=== PATIENT | male | born 1940 | race Caucasian/White ===

== ENCOUNTER 2017-06-22 16:53 | Observation (INO) ==
--- NOTE | 2017-06-22 18:19 | Consult Report ---
*Admission Date: 06/22/17 *Chief complaint: Left ischemic hallux, cellulitis *History of present illness: Mr. Angulo is a 76 y/o DM male who was admitted per Hola Chadwick for Dr. Turner. The patient was seen in clinic today by Dr. Turner for evaluation of left lower extremity circulation. The patient was recently at [facility] seeing Dr. Gutierrez. According to the patient, his daughter and office notes from 06/22/17, patient has known PAD and s/p R AKA. The patient has been going to [facility]. He had a runoff and RLE was completely occluded and resulted in a R AKA 06/01/17 per his report. The patient reports that his LLE was not much better as far as PAD according to Dr. Gutierrez. Patient reports the AKA resulted from lack of blood flow below the knee and from a gangrenous ulcer to tip of toe with infection, which spread to other toes. His daughter reports a small necrotic area to the L great toe started about 3 weeks ago, around same time as RLE AKA. The patient denies N/V, F/C, SOB/CP. He reports some pain if the left great toe is touched. He denies purulence. Patient is wheelchair bound and does not ambulate. He was admitted today for ischemic left toe and PAD. Dr. Turner plans to start antibiotics and anticoagulation tonight in preparation for runoff. He plans to proceed with LLE runoff with R radial access. If PCI is indicated, will use a left antegrade approach to intervene. Will schedule LLE runoff for 7:30 am tomorrow. Review of Systems - Review of Systems Review of systems:: pertinent systems reviewed and negative unless documented below - Constitutional Reports fatigue, Denies chills - *Cardiovascular Reports foot swelling, Denies chest pain, Denies lightheadedness - *Respiratory Denies cough, Denies shortness of breath - *Gastrointestinal Denies abdominal pain - *Musculoskeletal Reports abnormal walking (wheelchair), Reports deformity (Right AKA), Reports limited joint movement - Integumentary/Breasts Reports hair loss (LLE), Reports change in skin color - *Neurologic Reports tingling/numbness/burning sensations, Denies confusion - Psychiatric Denies confusion [facility] History I have reviewed the patient's past medical history: Yes Medical History: Reports:: Anxiety, Congestive Heart Failure, Coronary Artery Disease, Diabetes Mellitus Type 2, Hyperlipidemia, Peripheral Artery Disease, Renal Disease, Ulcer Other Surgeries: Yes: Other Amputation: Yes (R leg 06/01/17) - *Social History Smoking Status: Current some day smoker Tobacco Type: cigars Alcohol Intake: never Housing: halfway - Psychiatric History Expresses thoughts of harming self/others: None Pschychiatric History:: Reports:: Anxiety *Family Hx:: Coronary Artery Disease, Diabetes, Heart Attack Meds Home Medications Medication Instructions Recorded Confirmed Type acetaminophen 325 mg capsule 650 mg PO Q4H PRN 06/22/17 History albuterol sulfate 2.5 mg/3 mL 2.5 mg INHALATION Q4H PRN 06/22/17 History (0.083 %) solution for nebulization albuterol sulfate concentrate 5 2.5 mg INHALATION Q6H PRN ml 06/22/17 History mg/mL(0.5 %) solution for nebulization aspirin 81 mg tablet,delayed 81 mg PO DAILY tab 06/22/17 History release atorvastatin 40 mg tablet 40 mg PO HS tab 06/22/17 History balsam fahad-castor oil 87 mg-788 g TOPICAL Q12H g 06/22/17 History mg/gram topical ointment bumetanide 2 mg tablet 2 mg PO BID tab 06/22/17 History bumetanide 2 mg tablet 2 mg PO BID tab 06/22/17 History calcium acetate 667 mg capsule 667 mg PO TID cap 06/22/17 History cholecalciferol (vitamin D3) 1,000 1,000 unit PO DAILY cap 06/22/17 History unit capsule epoetin travis 10,000 unit/mL 10,000 unit SUB-Q Q3W ml 06/22/17 History injection solution escitalopram 10 mg tablet 10 mg PO DAILY tab 06/22/17 History isosorbide mononitrate ER 60 mg 60 mg PO QAM 06/22/17 History tablet,extended release 24 hr lansoprazole 30 mg capsule,delayed 30 mg PO DAILY cap 06/22/17 History release oxycodone-acetaminophen 5 mg-325 2 tab PO Q4-6H PRN 06/22/17 History mg tablet polyethylene glycol 3350 17 17 g PO Q10M 06/22/17 History gram/dose oral powder sennosides 8.6 mg tablet 8.6 mg PO BID PRN 06/22/17 History Allergies Allergy/AdvReac Type Severity Reaction Status Date / Time No Known Allergies Allergy Verified 06/22/17 15:02 Exam - *Routine HEENT Exam Head: Present: normocephalic - *Routine Neck Exam Present: supple, trachea midline - *Routine Respiratory Exam Absent: respiratory distress - *Routine Cardiovascular Exam Absent: JVD - *Routine Abdominal Exam Absent: wound - *Routine Rectal Exam Patient deferred: visual exam - *Routine Exam Patient deferred: penile exam - *Routine Extremities Exam Present: cyanosis, tenderness, amputation (right AKA). Absent: pulses intact, normal capillary refill - *Routine Skin Exam Present: erythema (left 1-2nd toes), wounds (left hallux) - *Routine Neurological Exam Present: alert, oriented X3 - Detailed Lower Extremity Exam Foot/Toes: Left erythema, Left swelling, Left tenderness, Left wound, Right amputation (R AKA) Comments: Right AKA. Left foot 2+ pitting edema noted. Non palpable pedal pulses. Left distal foot warm to touch. Edema and erythema noted to the first and second digits. There is an ulcer noted to the tip of the left hallux. The ulcer has intact eschar with periwound fibrotic tissue. The ulcer does not probe deep. The necrotic ulcer has no active purulent drainage noted. It measures ~2 x 1.1cm. Non palpable lymph nodes. Pain to palpation of the left hallux ulcer. Results - Labs Labs: All other labs normal. Assessment and Plan (1) Ischemic ulcer of toe of left foot Start date: 06/01/17 Start time: 18:31 Current visit: Yes Status: Acute Qualifiers: Non-pressure ulcer stage: with necrosis of muscle Qualified Code(s): L97.523 - Non-pressure chronic ulcer of other part of left foot with necrosis of muscle Category: Medical Code(s): L97.529 - Non-pressure chronic ulcer of other part of left foot with unspecified severity Infected Wound: left hallux ulcer: I discussed with the patient the importance of proper hygiene and maintaining a clean healthy wound bed to avoid the infection spreading. Due to the lack of blood flow and planned procedure gwyn, I did not debride the wound. No wound culture obtained, due to lack of drainage. Mercedez-wound cellulitis noted. Non- palpable popliteal lymph nodes. I discussed with the patient the situation that happened on the right side. Seems like it started as gangrene to 1 toe with infection that spread to 3 of the toes combined with lack of blood flow that ultimately resulted and an above-knee amputation on 06/01/17. I discussed with the patient and his family that he is high risk for amputation on the left side. I explained that the wound will not heal if there is a lack of blood flow. I explained the antibiotics are important to manage the cellulitis and keep the infection from getting worse. Patient verbalized understanding. 1. Ordered Santyl for daily dressing changes 2. Order infection panel: CBC, CMP, ESR, CRP, Ha1c. 3. IV Abx 4. Podiatry plan: monitor for now. I do not plan on surgery at this time. Await results from Dr. Turner tomorrow to determine if hallux amputation is an option versus local wound care with Santyl and antibiotics. 5. Will continue to follow. (2) Wheelchair bound Current visit: No Status: Chronic Category: Medical Code(s): Z99.3 - Dependence on wheelchair (3) Above knee amputation of right lower extremity Current visit: No Status: Chronic Category: Surgical Code(s): Z89.611 - Acquired absence of right leg above knee (4) Tobacco abuse Current visit: No Status: Chronic Category: Medical Code(s): Z72.0 - Tobacco use (5) PAD (peripheral artery disease) Current visit: No Status: Chronic Category: Medical Code(s): I73.9 - Peripheral vascular disease, unspecified (6) Cellulitis of left foot Start date: 06/22/17 Start time: 18:38 Current visit: Yes Status: Acute Category: Medical Code(s): L03.116 - Cellulitis of left lower limb
[2017-06-22 19:03] LABS: Activated Partial Thrombo Time 24.8 seconds (23.6-34.0); Prothrombin Time 10.8 seconds (9.4-11.8)
[2017-06-23 05:23] LABS: Basophils # 0.1 K/mm3 (0-0.2); Basophils % 0.4 % (0.1-2.0); Eosinophils # 0.2 K/mm3 (0.0-0.4); Eosinophils % 1.2 % (0.1-12.0); Hematocrit 31.1 % (42.0-52.0); Hemoglobin 9.8 g/dL (14.1-18.0); Lymphocytes # 0.8 K/mm3 (0.7-4.5); Lymphocytes % 5.7 K/mm3 (10-50); Mean Corpuscular HGB Conc 31.4 g/dL (31.8-35.4); Mean Corpuscular Hemoglobin 28.2 pg (27.0-31.2); Mean Corpuscular Volume 89.8 fl (80-94); Mean Platelet Volume 8.1 fl (7.4-10.4); Monocytes # 0.9 K/mm3 (0.1-1.0); Monocytes % 6.1 % (1.7-9.3); Neutrophils # 12.1 K/mm3 (1.8-7.8); Neutrophils % 86.6 % (37.0-80.0); Platelet Count 475 K/mm3 (142-424); Red Blood Count 3.47 M/mm3 (4.60-6.20); Red Cell Distribution Width 15.7 % (11.5-17.5); White Blood Count 13.9 K/mm3 (4.8-10.8)
[2017-06-23 05:30] LABS: Albumin Level 2.2 gm/dL (3.4-5.0); Albumin/Globulin Ratio 0.5 (1.1-1.8); Anion Gap 15.6 mEq/L (5-15); Bilirubin,Total 0.3 mg/dL (0.2-1.0); Calcium 8.8 mg/dL (8.5-10.1); Chol/HDL Ratio 2.9 (1-3.5); Globulin 4.6 gm/dl (1.3-3.2); Potassium 4.6 mmoL/L (3.5-5.1); Total Protein,Serum 6.8 gm/dL (6.4-8.2)
--- NOTE | 2017-06-23 07:55 | Pharmacy Consult Notes ---
[facility] Pharmacy VTE Monitoring - Patient Demographics Admission date: 06/22/17 Report Date: 06/23/17 Time: 07:55 Allergies/Adverse Reactions: Patient Allergies No Known Allergies Allergy (Verified 06/22/17 15:02) Height: 1.68 m Weight: 73.68 kg Patient Problems: Current Active Problems Cellulitis of left foot (Acute) Ischemic ulcer of toe of left foot (Acute) - VTE Risk Labs: VTE Related Lab Results Hgb 9.8 g/dL (14.1-18.0) L 06/23/17 03:10 Hct 31.1 % (42.0-52.0) L 06/23/17 03:10 Plt Count 475 K/mm3 (142-424) H 06/23/17 03:10 PT 10.8 seconds (9.4-11.8) 06/22/17 18:45 INR 1.00 (0.9-1.1) 06/22/17 18:45 APTT 33.1 seconds (23.6-34.0) 06/23/17 03:15 BUN 62 mg/dL (7-18) H 06/23/17 03:10 Creatinine 4.35 mg/dL (0.70-1.30) H 06/23/17 03:10 Estimated Creat Clear 15 mL/min (0-300) 06/23/17 03:10 Was VTE Risk Assessment Performed: Yes VTE Score: 7 VTE Risk Level: Moderate Risk Clinical Trial Participant: No - Prophylaxis VTE Prophylaxis Ordered?: Yes Types of VTE Prophylaxis: TEDS Knee High
--- NOTE | 2017-06-23 08:13 | Pharmacy Consult Notes ---
[facility] Pharmacy Heparin Dosing - Demographic Data Admission date:: 06/22/17 Date: 06/23/17 Time: 08:10 Allergies/Adverse Reactions: Allergies Allergy/AdvReac Type Severity Reaction Status Date / Time No Known Allergies Allergy Verified 06/22/17 15:02 Height: 1.87 m Weight: 78 kg - Indication Medication therapy:: Heparin Current Indications:: ISCHEMIA OF LEFT TOE/FOOT Patient Problems: Current Active Problems Cellulitis of left foot (Acute) Ischemic ulcer of toe of left foot (Acute) CVA?: No Bleeding problem?: No Kidney disease?: No [place]?: No Additional History:: AMPUTATION OF RIGHT LEG (RECENT) Desired PTT range:: 50-70 seconds - Labs Anticoagulation Lab Results:: 06/23/17 03:10 Hgb 9.8 L Hct 31.1 L Plt Count 475 H - Monitoring Dose Monitor 1 Date: 06/22/17 Time: 19:59 PTT Result:: 24.8 Infusion Rate:: 20 ML/HR (1000 UNITS/HR) WITH [address] PER [address]. ANDERSON, LIKELY INTERVENTION 06/23/17 Dose Monitor 2 Date: 06/23/17 Time: 04:20 PTT Result:: 33.1 Infusion Rate:: REBOLUS OF HEPARIN 5000 UNITS X1, THEN 23 ML/HR (1150 UNITS/HR) - Core Measures Is INR > or = 2 at discharge?: No Most Recent Labs:: Laboratory Results - last 24 hr 06/22/17 18:45: PT 10.8, INR 1.00, APTT 24.8 06/22/17 18:45: ESR 83 H 06/22/17 18:45: Hemoglobin A1c 5.7 06/22/17 18:45: C-Reactive Protein 6.8 H 06/22/17 20:03: POC Glucose 174 06/23/17 03:10: WBC 13.9 H, RBC 3.47 L, Hgb 9.8 L, Hct 31.1 L, MCV 89.8, MCH 28.2, MCHC 31.4 L, RDW 15.7, Plt Count 475 H, MPV 8.1, Neut % (Auto) 86.6 H, Lymph % (Auto) 5.7 L, [place] % (Auto) 6.1, Eos % (Auto) 1.2, Baso % (Auto) 0.4, Neut # (Auto) 12.1 H, Lymph # (Auto) 0.8, [place] # (Auto) 0.9, Eos # (Auto) 0.2, Baso # (Auto) 0.1 06/23/17 03:10: Sodium 138, Potassium 4.6, Chloride 103, Carbon Dioxide 24, Anion Gap 15.6 H, BUN 62 H, Creatinine 4.35 H, Estimated Creat Clear 15, Estimated GFR 13 L*, Est GFR ( Amer) 16 L*, Glucose 108 H, Calcium 8.8, Total Bilirubin 0.3, AST 25, ALT 18, Alkaline Phosphatase 94, Total Protein 6.8 , Albumin 2.2 L, Globulin 4.6 H, Albumin/Globulin Ratio 0.5 L, Triglycerides 47 , Cholesterol 120 L, LDL Cholesterol 70, VLDL Cholesterol 9, HDL Cholesterol 41 , Cholesterol/HDL Ratio 2.9 06/23/17 03:15: APTT 33.1 06/23/17 06:27: POC Glucose 99 Were Heparin and Warfarin started on the same day?: No If not, why?: PATIENT STENTED
--- NOTE | 2017-06-23 08:54 | Progress Note ---
Subjective Date: 06/23/17 Time: 07:40 Principal diagnosis: Left PVD, Ischemic Great Toe Interval history: Mr. Angulo is a 76 y/o DM male who was admitted yesterday 06/22/17. The patient was seen in clinic by Dr. Turner for evaluation of left lower extremity circulation. The patient was recently at [facility] seeing Dr. Gutierrez. He had R AKA 06/01/17. Patient is resting comfortably in bed. He denies N/V, F/C. He reports mild pain and discomfort to left foot. PN: Obj Ex Vital signs: Temp Pulse Resp BP Pulse Ox 99.1 F 87 16 149/65 91 L 06/23/17 07:31 06/23/17 07:31 06/23/17 07:31 06/23/17 07:31 06/23/17 07:31 - Constitutional no acute distress - Detailed Lower Extremity Exam Foot/Toes: Left swelling (great toe), Left wound (ischemic ulcer), Right amputation (AKA) Comments: Right AKA. Left foot 2+ pitting edema noted. Non palpable pedal pulses. Left distal foot warm to touch. Edema and erythema noted to the first and second digits. There is an ulcer noted to the tip of the left hallux. The ulcer has intact eschar with periwound fibrotic tissue. The ulcer does not probe deep. The necrotic ulcer has no active purulent drainage noted. It measures ~2 x 1.1cm. Non palpable lymph nodes. Pain to palpation of the left hallux ulcer. Progress Note: A&P (1) Ischemic ulcer of toe of left foot Start date: 06/01/17 Start time: 08:54 Status: Acute Current Visit: Yes (2) Wheelchair bound Status: Chronic Assessment and plan: Infected ichemic left hallux: The patient was initially scheduled for procedure this morning by Dr. Turner. He should not was still in the room. Only the procedure has been canceled for today due to his high creatinine levels. He is a renal dialysis patient and is scheduled for dialysis today. I discussed with the patient the importance of proper hygiene and maintaining a clean healthy wound bed to avoid the infection spreading. Due to the lack of blood flow, I did not debride the wound. No wound culture obtained, due to lack of drainage. Mercedez-wound cellulitis noted. Non-palpable popliteal lymph nodes. I discussed with the patient the situation that happened on the right side. Seems like it started as gangrene to 1 toe with infection that spread to 3 of the toes combined with lack of blood flow that ultimately resulted and an above- knee amputation on 06/01/17. I discussed with the patient and his family that he is high risk for amputation on the left side. I explained that the wound will not heal if there is a lack of blood flow. I explained the antibiotics are important to manage the cellulitis and keep the infection from getting worse. Patient verbalized understanding. 1. Ordered Santyl for daily dressing changes (applied betadine DSD this am) 2. Continue IV Abx 3. Podiatry plan: monitor for now. I do not plan on surgery at this time. Await results from Dr. Turner to determine if hallux amputation is an option versus local wound care with Santyl and antibiotics. 4. Patient will need to be transferred out for Dialysis 5. Recommend he goes to [facility] to resume care with his previous physicians 6. May follow up with me after re-vascularization 7. Will need daily dressing changes with Santyl (via [facility] or correction) Current Visit: No (3) Above knee amputation of right lower extremity Status: Chronic Current Visit: No (4) Tobacco abuse Status: Chronic Current Visit: No (5) PAD (peripheral artery disease) Status: Chronic Current Visit: No (6) Cellulitis of left foot Status: Acute Current Visit: Yes
--- NOTE | 2017-06-23 09:20 | Consult Report ---
History of Present Illness Consult date: 06/23/17 Requesting physician: Luis White Chief complaint: left leg ulcer Additional Medical History:: 1. Peripheral arterial disease A. Status post right [id number] amputation, 04/2017, secondary to nonhealing ulcer B. Left foot nonhealing ulcer, 05/2017 2. Chronic kidney disease currently on peritoneal dialysis with creatinine 4.3 , GFR 16 3. Hypertension 4. History of chronic cigar use 5. Possible diabetes mellitus, patient unsure. History of present illness: 76-year-old white male admitted for left lower extremity nonhealing ulcer of the foot. Patient known to have chronic kidney disease for which he is on dialysis 3 times a week. He recently had a right [id number] amputation for nonhealing ulcer on the right foot last month. Patient now with decreased warmth of the left foot, increasing pain and nonhealing ulcer. He was admitted for further evaluation. Dr. Ngo of podiatry has been consulted for evaluation as well. Patient denies any chest pain, shortness of breath, chest tightness or pressure. [facility] History Medical History: Reports:: Anxiety, Congestive Heart Failure, Coronary Artery Disease, Diabetes Mellitus Type 2, Hyperlipidemia, MRSA (HAND AND NECK 2014), Peripheral Artery Disease, Renal Disease, Ulcer Denies:: Cancer Laterality Cases: Bilateral: Tonsillectomy Other Surgeries: Yes: Cardiac Catheterization, Colonoscopy, EGD, Other Amputation: Yes (R leg 06/01/17) - *Social History Educational Level: Completed College Smoking Status: Current every day smoker Tobacco Type: cigars # Packs/Day (cigarettes): 1 #Yrs smoked (if former smoker): 60 Alcohol Intake: never Occupational Status: retired, disabled Housing: half-way Household Members: other - Psychiatric History Expresses thoughts of harming self/others: None Suicide Plan Description: No Plan Pschychiatric History:: Reports:: Anxiety *Family Hx:: Coronary Artery Disease, Diabetes, Heart Attack Meds Home Medications Medication Instructions Recorded Confirmed Type Clopidogrel Bisulfate [Plavix] 75 mg PO DAILY 06/22/17 06/22/17 History Ondansetron HCl [Ondansetron 4mg 4 mg PO Q6HP PRN 06/22/17 06/22/17 History Tab] acetaminophen 325 mg capsule 650 mg PO Q4H PRN 06/22/17 06/22/17 History albuterol sulfate 2.5 mg/3 mL 2.5 mg INHALATION Q6HP PRN 06/22/17 06/22/17 History (0.083 %) solution for nebulization aspirin 81 mg tablet,delayed 81 mg PO DAILY tab MDD = 06/22/17 06/22/17 History release atorvastatin 40 mg tablet 40 mg PO HS tab 06/22/17 06/22/17 History balsam fahad-castor oil 87 mg-788 1 g TOPICAL Q12H g 06/22/17 06/22/17 History mg/gram topical ointment bumetanide 2 mg tablet 2 mg PO BID tab 06/22/17 06/22/17 History calcium acetate 667 mg capsule 667 mg PO TID cap 06/22/17 06/22/17 History cholecalciferol (vitamin D3) 1,000 1,000 unit PO DAILY cap 06/22/17 06/22/17 History unit capsule epoetin travis 10,000 unit/mL 10,000 unit SUB-Q Q3W ml 06/22/17 06/22/17 History injection solution escitalopram 10 mg tablet 10 mg PO DAILY tab 06/22/17 06/22/17 History isosorbide mononitrate ER 60 mg 60 mg PO QAM 06/22/17 06/22/17 History tablet,extended release 24 hr lansoprazole 30 mg capsule,delayed 30 mg PO DAILY cap 06/22/17 06/22/17 History release oxycodone-acetaminophen 5 mg-325 2 tab PO Q4HP PRN 06/22/17 06/22/17 History mg tablet polyethylene glycol 3350 17 17 g PO DAILY 06/22/17 06/22/17 History gram/dose oral powder sennosides 8.6 mg tablet 8.6 mg PO BID PRN 06/22/17 06/22/17 History Allergies Allergy/AdvReac Type Severity Reaction Status Date / Time No Known Allergies Allergy Verified 06/22/17 15:02 Review of Systems - *Cardiovascular Denies chest pain - *Respiratory Reports shortness of breath with activity - *Gastrointestinal Denies abdominal pain - *Neurologic Reports abnormal walking (wheelchair), Reports tingling/numbness/burning sensations, Denies confusion Exam Vital signs and Labs for Last 24 Hours: Temp Pulse Resp BP Pulse Ox 99.1 F 87 16 149/65 91 L 06/23/17 07:31 06/23/17 07:31 06/23/17 07:31 06/23/17 07:31 06/23/17 07:31 Laboratory Results - last 24 hr 06/22/17 18:45: PT 10.8, INR 1.00, APTT 24.8 06/22/17 18:45: ESR 83 H 06/22/17 18:45: Hemoglobin A1c 5.7 06/22/17 18:45: C-Reactive Protein 6.8 H 06/22/17 20:03: POC Glucose 174 06/23/17 03:10: WBC 13.9 H, RBC 3.47 L, Hgb 9.8 L, Hct 31.1 L, MCV 89.8, MCH 28.2, MCHC 31.4 L, RDW 15.7, Plt Count 475 H, MPV 8.1, Neut % (Auto) 86.6 H, Lymph % (Auto) 5.7 L, [place] % (Auto) 6.1, Eos % (Auto) 1.2, Baso % (Auto) 0.4, Neut # (Auto) 12.1 H, Lymph # (Auto) 0.8, [place] # (Auto) 0.9, Eos # (Auto) 0.2, Baso # (Auto) 0.1 06/23/17 03:10: Sodium 138, Potassium 4.6, Chloride 103, Carbon Dioxide 24, Anion Gap 15.6 H, BUN 62 H, Creatinine 4.35 H, Estimated Creat Clear 15, Estimated GFR 13 L*, Est GFR ( Amer) 16 L*, Glucose 108 H, Calcium 8.8, Total Bilirubin 0.3, AST 25, ALT 18, Alkaline Phosphatase 94, Total Protein 6.8 , Albumin 2.2 L, Globulin 4.6 H, Albumin/Globulin Ratio 0.5 L, Triglycerides 47 , Cholesterol 120 L, LDL Cholesterol 70, VLDL Cholesterol 9, HDL Cholesterol 41 , Cholesterol/HDL Ratio 2.9 06/23/17 03:15: APTT 33.1 06/23/17 06:27: POC Glucose 99 I & O for Last 24 hours: Intake & Output 06/20/17 06/21/17 06/22/17 06/23/17 11:59 11:59 11:59 11:59 Intake Total 200 / 200 Balance 200 / 200 Weight 162 lb 7 oz - *Routine Neck Exam Present: carotid bruit - *Routine Respiratory Exam Present: CTA bilaterally - *Routine Cardiovascular Exam Present: RRR, murmur - *Routine Extremities Exam Comments: Right [id number] amputation noted. Left leg with bandage around the toes and dorsum of the foot but without palpable pulse. Foot is warm. - *Routine Neurological Exam Present: alert, oriented X3, moving all extremities Assessment and Plan (1) Ischemic ulcer of toe of left foot Start date: 06/01/17 Start time: 08:54 Current visit: Yes Status: Acute Qualifiers: Non-pressure ulcer stage: with necrosis of muscle Qualified Code(s): L97.523 - Non-pressure chronic ulcer of other part of left foot with necrosis of muscle Category: Medical Code(s): L97.529 - Non-pressure chronic ulcer of other part of left foot with unspecified severity (2) Wheelchair bound Current visit: No Status: Chronic Category: Medical Code(s): Z99.3 - Dependence on wheelchair (3) Above knee amputation of right lower extremity Current visit: No Status: Chronic Category: Surgical Code(s): Z89.611 - Acquired absence of right leg above knee (4) Tobacco abuse Current visit: No Status: Chronic Category: Medical Code(s): Z72.0 - Tobacco use (5) PAD (peripheral artery disease) Current visit: No Status: Chronic Category: Medical Code(s): I73.9 - Peripheral vascular disease, unspecified (6) Cellulitis of left foot Start date: 06/22/17 Start time: 18:38 Current visit: Yes Status: Acute Category: Medical Code(s): L03.116 - Cellulitis of left lower limb - Assessment and plan all Dx Assessment and Plan for all problems:: 1. Proceed with lower extremity runoff of the left leg today. Other recommendations to follow. 2. Reschedule the patient's dialysis from today to tomorrow. 3. Will try to obtain recent records for further review.
[2017-06-23 10:53] LABS: Lymphocytes % 9 % (10-50); Monocytes % 9 % (2-9); Neutrophils % 82 % (42-76); Total Cells Counted 100
[2017-06-23 10:54] LABS: RBC Morphology Normal
--- NOTE | 2017-06-23 14:58 | History & Physical Report ---
*Admission Date: 06/22/17 *Chief complaint: foot ulcer *History of present illness: Mr. Angulo is a 76 y/o DM male who was admitted per Hola Chadwick for Dr. Turner. The patient was seen in clinic today by Dr. Turner for evaluation of left lower extremity circulation. The patient was recently at [facility] seeing Dr. Gutierrez. According to the patient, his daughter and office notes from 06/22/17, patient has known PAD and s/p R AKA. The patient has been going to [facility]. He had a runoff and RLE was completely occluded and resulted in a R AKA 06/01/17 per his report. The patient reports that his LLE was not much better as far as PAD according to Dr. Gutierrez. Patient reports the AKA resulted from lack of blood flow below the knee and from a gangrenous ulcer to tip of toe with infection, which spread to other toes. His daughter reports a small necrotic area to the L great toe started about 3 weeks ago, around same time as RLE AKA. The patient denies N/V, F/C, SOB/CP. He reports some pain if the left great toe is touched. He denies purulence. Patient is wheelchair bound and does not ambulate. He was admitted today for ischemic left toe and PAD. Dr. Turner plans to start antibiotics and anticoagulation tonight in preparation for runoff. He plans to proceed with LLE runoff with R radial access. If PCI is indicated, will use a left antegrade approach to intervene. Will schedule LLE runoff for 7:30 am tomorrow. [facility] History I have reviewed the patient's past medical history: Yes Medical History: Reports:: Anxiety, Congestive Heart Failure, Coronary Artery Disease, Diabetes Mellitus Type 2, Hyperlipidemia, MRSA (HAND AND NECK 2015), Peripheral Artery Disease, Renal Disease, Ulcer Denies:: Cancer Laterality Cases: Bilateral: Tonsillectomy Other Surgeries: Yes: Cardiac Catheterization, Colonoscopy, EGD, Other Amputation: Yes (R leg 06/01/17) - *Social History Educational Level: Completed College Smoking Status: Current every day smoker Tobacco Type: cigars # Packs/Day (cigarettes): 1 #Yrs smoked (if former smoker): 60 Alcohol Intake: never Occupational Status: retired, disabled Housing: skilled nursing Household Members: other - Psychiatric History Expresses thoughts of harming self/others: None Suicide Plan Description: No Plan Pschychiatric History:: Reports:: Anxiety *Family Hx:: Coronary Artery Disease, Diabetes, Heart Attack Review of Systems - Review of Systems Review of systems:: pertinent systems reviewed and negative unless documented below - Constitutional Denies fever(s) - Eyes Denies change in vision - ENT Denies sore throat - *Cardiovascular Denies chest pain at rest - *Respiratory Denies cough - *Gastrointestinal Denies abdominal pain - *Genitourinary Denies blood in urine - *Musculoskeletal Reports joint pain, Reports joint swelling - Integumentary/Breasts Denies rash - *Neurologic Reports abnormal walking (wheelchair), Reports tingling/numbness/burning sensations, Denies confusion Meds Home Medications Medication Instructions Recorded Confirmed Type Clopidogrel Bisulfate [Plavix] 75 mg PO DAILY 06/22/17 06/22/17 History Ondansetron HCl [Ondansetron 4mg 4 mg PO Q6HP PRN 06/22/17 06/22/17 History Tab] acetaminophen 325 mg capsule 650 mg PO Q4H PRN 06/22/17 06/22/17 History albuterol sulfate 2.5 mg/3 mL 2.5 mg INHALATION Q6HP PRN 06/22/17 06/22/17 History (0.083 %) solution for nebulization aspirin 81 mg tablet,delayed 81 mg PO DAILY tab MDD = 06/22/17 06/22/17 History release atorvastatin 40 mg tablet 40 mg PO HS tab 06/22/17 06/22/17 History balsam fahad-castor oil 87 mg-788 1 g TOPICAL Q12H g 06/22/17 06/22/17 History mg/gram topical ointment bumetanide 2 mg tablet 2 mg PO BID tab 06/22/17 06/22/17 History calcium acetate 667 mg capsule 667 mg PO TID cap 06/22/17 06/22/17 History cholecalciferol (vitamin D3) 1,000 1,000 unit PO DAILY cap 06/22/17 06/22/17 History unit capsule epoetin travis 10,000 unit/mL 10,000 unit SUB-Q Q3W ml 06/22/17 06/22/17 History injection solution escitalopram 10 mg tablet 10 mg PO DAILY tab 06/22/17 06/22/17 History isosorbide mononitrate ER 60 mg 60 mg PO QAM 06/22/17 06/22/17 History tablet,extended release 24 hr lansoprazole 30 mg capsule,delayed 30 mg PO DAILY cap 06/22/17 06/22/17 History release oxycodone-acetaminophen 5 mg-325 2 tab PO Q4HP PRN 06/22/17 06/22/17 History mg tablet polyethylene glycol 3350 17 17 g PO DAILY 06/22/17 06/22/17 History gram/dose oral powder sennosides 8.6 mg tablet 8.6 mg PO BID PRN 06/22/17 06/22/17 History Allergies Allergy/AdvReac Type Severity Reaction Status Date / Time No Known Allergies Allergy Verified 06/22/17 15:02 Exam Vital signs and Labs for Last 24 Hours: Temp Pulse Resp BP Pulse Ox 99.1 F 80 16 143/82 95 06/23/17 07:31 06/23/17 14:36 06/23/17 14:36 06/23/17 14:36 06/23/17 14:36 Laboratory Results - last 24 hr 06/22/17 18:45: PT 10.8, INR 1.00, APTT 24.8 06/22/17 18:45: ESR 83 H 06/22/17 18:45: Hemoglobin A1c 5.7 06/22/17 18:45: C-Reactive Protein 6.8 H 06/22/17 20:03: POC Glucose 174 06/23/17 03:10: WBC 13.9 H, RBC 3.47 L, Hgb 9.8 L, Hct 31.1 L, MCV 89.8, MCH 28.2, MCHC 31.4 L, RDW 15.7, Plt Count 475 H, MPV 8.1, Neut % (Auto) 86.6 H, Lymph % (Auto) 5.7 L, [place] % (Auto) 6.1, Eos % (Auto) 1.2, Baso % (Auto) 0.4, Neut # (Auto) 12.1 H, Lymph # (Auto) 0.8, [place] # (Auto) 0.9, Eos # (Auto) 0.2, Baso # (Auto) 0.1, Total Counted 100, Neutrophils % (Manual) 82 H, Lymphocytes % (Manual) 9 L, Monocytes % (Manual) 9, Platelet Estimate Slight increase, RBC Morphology Normal 06/23/17 03:10: Sodium 138, Potassium 4.6, Chloride 103, Carbon Dioxide 24, Anion Gap 15.6 H, BUN 62 H, Creatinine 4.35 H, Estimated Creat Clear 15, Estimated GFR 13 L*, Est GFR ( Amer) 16 L*, Glucose 108 H, Calcium 8.8, Total Bilirubin 0.3, AST 25, ALT 18, Alkaline Phosphatase 94, Total Protein 6.8 , Albumin 2.2 L, Globulin 4.6 H, Albumin/Globulin Ratio 0.5 L, Triglycerides 47 , Cholesterol 120 L, LDL Cholesterol 70, VLDL Cholesterol 9, HDL Cholesterol 41 , Cholesterol/HDL Ratio 2.9 06/23/17 03:15: APTT 33.1 06/23/17 06:27: POC Glucose 99 06/23/17 08:41: APTT 42.3 H D 06/23/17 13:13: Activated Clotting Time 219 H* I & O for Last 24 hours: Intake & Output 06/21/17 06/22/17 06/23/17 06/24/17 11:59 11:59 11:59 11:59 Intake Total 200 / 200 Balance 200 / 200 Weight 162 lb 7 oz - Constitutional no acute distress - *Routine HEENT Exam Head: Present: normocephalic Eye: Present: EOMI, PERRL ENT: Present: mucous membranes dry - *Routine Neck Exam Present: supple - *Routine Respiratory Exam Present: decreased breath sounds - *Routine Cardiovascular Exam Present: murmur - *Routine Abdominal Exam Present: soft - *Routine Extremities Exam Present: tenderness Comments: tenderness and cellulitis toe /foot - *Routine Skin Exam Comments: has changes consistent with cellulitis - *Routine Neurological Exam Present: alert, oriented X3, CN II-XII intact - Routine Psychiatric Exam Present: normal affect H&P: Result - Labs Labs: Short CBC 06/23/17 Range/Units 03:10 WBC 13.9 H (4.8-10.8) K/mm3 Hgb 9.8 L (14.1-18.0) g/dL Hct 31.1 L (42.0-52.0) % Plt Count 475 H (142-424) K/mm3 BMP 06/23/17 03:10 Sodium 138 Potassium 4.6 Chloride 103 Carbon Dioxide 24 BUN 62 H Creatinine 4.35 H Glucose 108 H Calcium 8.8 Liver Function 06/23/17 Range/Units 03:10 Total Bilirubin 0.3 (0.2-1.0) mg/dL AST 25 (15-37) U/L ALT 18 (12-78) U/L Alkaline Phosphatase 94 (46-116) U/L Albumin 2.2 L (3.4-5.0) gm/dL Assessment and Plan (1) Ischemic ulcer of toe of left foot Start date: 06/01/17 Start time: 08:54 Current visit: Yes Status: Acute Qualifiers: Non-pressure ulcer stage: with necrosis of muscle Qualified Code(s): L97.523 - Non-pressure chronic ulcer of other part of left foot with necrosis of muscle Category: Medical Code(s): L97.529 - Non-pressure chronic ulcer of other part of left foot with unspecified severity (2) Wheelchair bound Current visit: No Status: Chronic Category: Medical Code(s): Z99.3 - Dependence on wheelchair (3) Above knee amputation of right lower extremity Current visit: No Status: Chronic Category: Surgical Code(s): Z89.611 - Acquired absence of right leg above knee (4) Tobacco abuse Current visit: No Status: Chronic Category: Medical Code(s): Z72.0 - Tobacco use (5) PAD (peripheral artery disease) Current visit: No Status: Chronic Category: Medical Code(s): I73.9 - Peripheral vascular disease, unspecified (6) Cellulitis of left foot Start date: 06/22/17 Start time: 18:38 Current visit: Yes Status: Acute Category: Medical Code(s): L03.116 - Cellulitis of left lower limb (7) Osteomyelitis Current visit: Yes Status: Acute Category: Medical Code(s): M86.9 - Osteomyelitis, unspecified (8) Anemia Current visit: Yes Status: Acute Category: Medical Code(s): D64.9 - Anemia , unspecified (9) Renal insufficiency Current visit: Yes Status: Acute Category: Medical Code(s): N28.9 - Disorder of kidney and ureter, unspecified (10) ESRD (end stage renal disease) on dialysis Current visit: Yes Status: Acute Category: Medical Code(s): N18.6 - End stage renal disease; Z99.2 - Dependence on renal dialysis
[2017-06-24 06:48] LABS: Basophils # 0.1 K/mm3 (0-0.2); Basophils % 0.4 % (0.1-2.0); Eosinophils # 0.4 K/mm3 (0.0-0.4); Eosinophils % 3.6 % (0.1-12.0); Hematocrit 30.1 % (42.0-52.0); Hemoglobin 9.2 g/dL (14.1-18.0); Lymphocytes # 0.7 K/mm3 (0.7-4.5); Lymphocytes % 5.9 K/mm3 (10-50); Mean Corpuscular HGB Conc 30.5 g/dL (31.8-35.4); Mean Corpuscular Hemoglobin 27.9 pg (27.0-31.2); Mean Corpuscular Volume 91.5 fl (80-94); Monocytes # 0.9 K/mm3 (0.1-1.0); Monocytes % 7.5 % (1.7-9.3); Neutrophils # 9.8 K/mm3 (1.8-7.8); Neutrophils % 82.5 % (37.0-80.0); Platelet Count 425 K/mm3 (142-424); Red Blood Count 3.29 M/mm3 (4.60-6.20); Red Cell Distribution Width 15.6 % (11.5-17.5); White Blood Count 11.9 K/mm3 (4.8-10.8)
[2017-06-24 06:49] LABS: Anion Gap 14.1 mEq/L (5-15); Potassium 5.1 mmoL/L (3.5-5.1)
--- NOTE | 2017-06-24 08:03 | Progress Note ---
Subjective Date: 06/24/17 Time: 07:35 Principal diagnosis: Left PVD, Ischemic Great Toe Interval history: Mr. Angulo is a 76 y/o DM male who was admitted 06/22/17. The patient had a left lower extremity run off with 2 iliac stents placed by Dr. Turner 06/23/17. The patient was recently at [facility] seeing Dr. Gutierrez. He had R AKA 06/01. Patient is resting comfortably in bed. He denies N/V, F/C. He reports no pain to left foot. PN: Obj Ex Vital signs: Temp Pulse Resp BP Pulse Ox 98.7 F 91 H 18 129/64 92 L 06/24/17 07:31 06/24/17 07:31 06/24/17 07:31 06/24/17 07:31 06/24/17 07:31 - Constitutional no acute distress - Detailed Lower Extremity Exam Foot/Toes: Left erythema (improving), Left swelling, Left wound (distal tip of left hallux) Comments: Right AKA. Left foot 2+ pitting edema noted. Left distal foot warm to touch. Edema and erythema noted to the first and second digits is improving. No ascending cellulitis. There is an ulcer noted to the tip of the left hallux. The ulcer has intact eschar with periwound fibrotic tissue. The ulcer does not probe deep. The necrotic ulcer has no active purulent drainage noted. It measures ~2 x 1.1cm. Non palpable lymph nodes. No pain to palpation of the left hallux ulcer. Progress Note: A&P (1) Ischemic ulcer of toe of left foot Start date: 06/01/17 Start time: 08:00 Status: Acute Assessment and plan: Infected ichemic left hallux: The patient has left lower extremity run off procedure 06/23/[address] Turner. He had 2 iliac stents placed. He is a renal dialysis patient and is scheduled for dialysis today. He is to be transferred for dialysis and back to [place]. I discussed with the patient the importance of proper hygiene and maintaining a clean healthy wound bed to avoid the infection spreading. Due to the lack of blood flow, I did not debride the wound. No wound culture obtained, due to lack of drainage. Mercedez-wound cellulitis noted to be improving with the antibiotics. I discussed with the patient the situation that happened on the right side. Seems like it started as gangrene to 1 toe with infection that spread to 3 of the toes combined with lack of blood flow that ultimately resulted and an above- knee amputation on 06/01/17. I discussed with the patient and his family that he is high risk for amputation on the left side. I explained that the wound will not heal if there is a lack of blood flow. I explained the antibiotics are important to manage the cellulitis and keep the infection from getting worse. Patient verbalized understanding. 1. Santyl applied to the left hallux followed by a dry sterile dressing 2. Continue IV Abx 3. Podiatry plan: monitor for now. I do not plan on surgery at this time. Continue local wound care with Santyl and antibiotics. 4. Patient will need to be transferred out for Dialysis [place] Orders: 1. Will need daily dressing changes with Santyl 2. Sent the Santyl with the patient upon discharge 3. WB as tolerated in post op shoe 4. Off load left foot, suspend heel off pillow to avoid decubitus heel ulcer 5. Follow up in one week with Podiatry or [facility] wound care center Current Visit: Yes (2) Wheelchair bound Status: Chronic Current Visit: No (3) Above knee amputation of right lower extremity Status: Chronic Current Visit: No (4) Tobacco abuse Status: Chronic Current Visit: No (5) PAD (peripheral artery disease) Status: Chronic Current Visit: No (6) Cellulitis of left foot Status: Acute Current Visit: Yes (7) Osteomyelitis Status: Acute Current Visit: Yes (8) Anemia Status: Acute Current Visit: Yes (9) Renal insufficiency Status: Acute Current Visit: Yes (10) ESRD (end stage renal disease) on dialysis Status: Acute Current Visit: Yes
--- NOTE | 2017-06-24 08:08 | Discharge Summary ---
General - General Admission date: 06/22/17 Discharge date: 06/24/17 HPI HPI: Mr. Angulo is a 76 y/o DM male who was admitted per Hola Chadwick for Dr. Turner. The patient was seen in clinic today by Dr. Turner for evaluation of left lower extremity circulation. The patient was recently at [facility] seeing Dr. Gutierrez. According to the patient, his daughter and office notes from 06/22/17, patient has known PAD and s/p R AKA. The patient has been going to [facility]. He had a runoff and RLE was completely occluded and resulted in a R AKA 06/01/17 per his report. The patient reports that his LLE was not much better as far as PAD according to Dr. Gutierrez. Patient reports the AKA resulted from lack of blood flow below the knee and from a gangrenous ulcer to tip of toe with infection, which spread to other toes. His daughter reports a small necrotic area to the L great toe started about 3 weeks ago, around same time as RLE AKA. The patient denies N/V, F/C, SOB/CP. He reports some pain if the left great toe is touched. He denies purulence. Patient is wheelchair bound and does not ambulate. He was admitted today for ischemic left toe and PAD. Dr. Turner plans to start antibiotics and anticoagulation tonight in preparation for runoff. He plans to proceed with LLE runoff with R radial access. If PCI is indicated, will use a left antegrade approach to intervene. Will schedule LLE runoff for 7:30 am tomorrow. Hospital Course Hospital Course: pt with improvement after procedure evere multilayer peripheral artery disease with a severe calcified eccentric stenosis in the left common iliac artery 2. Successful stenting of the left common iliac artery with improved inflow to the severe distal disease as described above Plan: 1. Plavix and aspirin 2. No attempt will be made to open the severely diffusely diseased superficial femoral artery. Likewise the profunda femoris artery is severely calcified and moderate to severely stenosed proximally. Stenting this would not be advantageous either. The distal disease cannot be reached in an antegrade manner and retrograde revascularization would not benefit due to the very proximal nature of the disease. Opening the peroneal would sacrificed the posterior tibialis artery and vice versa. 3. Hemodialysis 4. We appreciate the Podiatry services following patient and treating their are expertise pt was seen by podiatrypatient was initially scheduled for procedure this morning by Dr. Turner. He should not was still in the room. Only the procedure has been canceled for today due to his high creatinine levels. He is a renal dialysis patient and is scheduled for dialysis today. I discussed with the patient the importance of proper hygiene and maintaining a clean healthy wound bed to avoid the infection spreading. Due to the lack of blood flow, I did not debride the wound. No wound culture obtained, due to lack of drainage. [place]-wound cellulitis noted. Non-palpable popliteal lymph nodes. I discussed with the patient the situation that happened on the right side. Seems like it started as gangrene to 1 toe with infection that spread to 3 of the toes combined with lack of blood flow that ultimately resulted and an above- knee amputation on 06/01/17. I discussed with the patient and his family that he is high risk for amputation on the left side. I explained that the wound will not heal if there is a lack of blood flow. I explained the antibiotics are important to manage the cellulitis and keep the infection from getting worse. Patient verbalized understanding. 1. Ordered Santyl for daily dressing changes (applied betadine DSD this am) 2. Continue IV Abx 3. Podiatry plan: monitor for now. I do not plan on surgery at this time. Await results from Dr. Turner to determine if hallux amputation is an option versus local wound care with Santyl and antibiotics. 4. Patient will need to be transferred out for Dialysis 5. Recommend he goes to [facility] to resume care with his previous physicians 6. May follow up with me after re-vascularization 7. Will need daily dressing changes with Santyl (via [facility] or pen[facility]) Current Visit: No Objective Vital signs: Temp Pulse Resp BP Pulse Ox 98.7 F 91 H 18 129/64 92 L 06/24/17 07:31 06/24/17 07:31 06/24/17 07:31 06/24/17 07:31 06/24/17 07:31 no acute distress - *Routine HEENT Exam Head: Present: normocephalic Eye: Present: EOMI, PERRL ENT: Present: mucous membranes dry - *Routine Neck Exam Absent: JVD - *Routine Respiratory Exam Present: CTA bilaterally - *Routine Cardiovascular Exam Present: murmur - *Routine Abdominal Exam Present: soft - *Routine Extremities Exam Comments: chronic changes to foot - *Routine Skin Exam Present: intact - *Routine Neurological Exam Present: alert, oriented X3, CN II-XII intact - Routine Psychiatric Exam Present: normal affect Results Labs on day of discharge: Labs from last 24 hours 06/24/17 06/24/17 06/23/17 06:15 06:15 20:30 WBC 11.9 H RBC 3.29 L Hgb 9.2 L Hct 30.1 L MCV 91.5 MCH 27.9 MCHC 30.5 L RDW 15.6 Plt Count 425 H MPV 8.0 Neut % (Auto) 82.5 H Lymph % (Auto) 5.9 L [place] % (Auto) 7.5 Eos % (Auto) 3.6 Baso % (Auto) 0.4 Neut # (Auto) 9.8 H Lymph # (Auto) 0.7 [place] # (Auto) 0.9 Eos # (Auto) 0.4 Baso # (Auto) 0.1 Total Counted Neutrophils % (Manual) Lymphocytes % (Manual) Monocytes % (Manual) Platelet Estimate RBC Morphology APTT Activated Clotting Time Sodium 135 L Potassium 5.1 Chloride 103 Carbon Dioxide 23 Anion Gap 14.1 BUN 77 H Creatinine 4.82 H Estimated Creat Clear 14 Estimated GFR 12 L* Est GFR ( Amer) 14 L* Glucose 97 POC Glucose 147 06/23/17 06/23/17 06/23/17 17:21 13:13 08:41 WBC RBC Hgb Hct MCV MCH MCHC RDW Plt Count MPV Neut % (Auto) Lymph % (Auto) [place] % (Auto) Eos % (Auto) Baso % (Auto) Neut # (Auto) Lymph # (Auto) [place] # (Auto) Eos # (Auto) Baso # (Auto) Total Counted Neutrophils % (Manual) Lymphocytes % (Manual) Monocytes % (Manual) Platelet Estimate RBC Morphology APTT 42.3 H D Activated Clotting Time 219 H* Sodium Potassium Chloride Carbon Dioxide Anion Gap BUN Creatinine Estimated Creat Clear Estimated GFR Est GFR ( Amer) Glucose POC Glucose 119 06/23/17 03:10 WBC RBC Hgb Hct MCV MCH MCHC RDW Plt Count MPV Neut % (Auto) Lymph % (Auto) [place] % (Auto) Eos % (Auto) Baso % (Auto) Neut # (Auto) Lymph # (Auto) [place] # (Auto) Eos # (Auto) Baso # (Auto) Total Counted 100 Neutrophils % (Manual) 82 H Lymphocytes % (Manual) 9 L Monocytes % (Manual) 9 Platelet Estimate Slight increase RBC Morphology Normal APTT Activated Clotting Time Sodium Potassium Chloride Carbon Dioxide Anion Gap BUN Creatinine Estimated Creat Clear Estimated GFR Est GFR ( Amer) Glucose POC Glucose DS: Diagnosis - Discharge Diagnosis (1) Ischemic ulcer of toe of left foot Status: Acute (2) Wheelchair bound Status: Chronic (3) Above knee amputation of right lower extremity Status: Chronic (4) Tobacco abuse Status: Chronic (5) PAD (peripheral artery disease) Status: Chronic (6) Cellulitis of left foot Status: Acute (7) Osteomyelitis Status: Acute (8) Anemia Status: Acute (9) Renal insufficiency Status: Acute (10) ESRD (end stage renal disease) on dialysis Status: Acute Discharge Plan - Patient Discharge Instructions ACTIVITY: Continue current activity DIET: continue same diet - Follow up Plan Disposition: Home, Self-Retirement Medications: Home Medications Medication Instructions Recorded Confirmed Type Clopidogrel Bisulfate [Plavix] 75 mg PO DAILY 06/22/17 06/22/17 History Ondansetron HCl [Ondansetron 4mg 4 mg PO Q6HP PRN 06/22/17 06/22/17 History Tab] acetaminophen 325 mg capsule 650 mg PO Q4H PRN 06/22/17 06/22/17 History albuterol sulfate 2.5 mg/3 mL 2.5 mg INHALATION Q6HP PRN 06/22/17 06/22/17 History (0.083 %) solution for nebulization aspirin 81 mg tablet,delayed 81 mg PO DAILY tab MDD = 06/22/17 06/22/17 History release atorvastatin 40 mg tablet 40 mg PO HS tab 06/22/17 06/22/17 History balsam fahad-castor oil 87 mg-788 1 g TOPICAL Q12H g 06/22/17 06/22/17 History mg/gram topical ointment bumetanide 2 mg tablet 2 mg PO BID tab 06/22/17 06/22/17 History calcium acetate 667 mg capsule 667 mg PO TID cap 06/22/17 06/22/17 History cholecalciferol (vitamin D3) 1,000 1,000 unit PO DAILY cap 06/22/17 06/22/17 History unit capsule epoetin travis 10,000 unit/mL 10,000 unit SUB-Q Q3W ml 06/22/17 06/22/17 History injection solution escitalopram 10 mg tablet 10 mg PO DAILY tab 06/22/17 06/22/17 History isosorbide mononitrate ER 60 mg 60 mg PO QAM 06/22/17 06/22/17 History tablet,extended release 24 hr lansoprazole 30 mg capsule,delayed 30 mg PO DAILY cap 06/22/17 06/22/17 History release oxycodone-acetaminophen 5 mg-325 2 tab PO Q4HP PRN 06/22/17 06/22/17 History mg tablet polyethylene glycol 3350 17 17 g PO DAILY 06/22/17 06/22/17 History gram/dose oral powder sennosides 8.6 mg tablet 8.6 mg PO BID PRN 06/22/17 06/22/17 History Prescriptions/Medication Reconciliation: New Collagenase Clostridium Hist. [Santyl Ointment 30gm] 0 gm TP DAILY oint...g. Continue albuterol sulfate 2.5 mg/3 mL (0.083 %) solution for nebulization 2.5 mg INHALATION Q6HP PRN PRN Reason: Wheezing atorvastatin 40 mg tablet 40 mg PO HS tab bumetanide 2 mg tablet 2 mg PO BID tab calcium acetate 667 mg capsule 667 mg PO TID cap cholecalciferol (vitamin D3) 1,000 unit capsule 1,000 unit PO DAILY cap escitalopram 10 mg tablet 10 mg PO DAILY tab isosorbide mononitrate ER 60 mg tablet,extended release 24 hr 60 mg PO QAM polyethylene glycol 3350 17 gram/dose oral powder 17 g PO DAILY lansoprazole 30 mg capsule,delayed release 30 mg PO DAILY cap sennosides 8.6 mg tablet 8.6 mg PO BID PRN PRN Reason: Constipation balsam fahad-castor oil 87 mg-788 mg/gram topical ointment 1 g TOPICAL Q12H g epoetin travis 10,000 unit/mL injection solution 10,000 unit SUB-Q Q3W ml oxycodone-acetaminophen 5 mg-325 mg tablet 2 tab PO Q4HP PRN PRN Reason: pain aspirin 81 mg tablet,delayed release 81 mg PO DAILY tab MDD = Clopidogrel Bisulfate [Plavix] 75 mg PO DAILY Ondansetron HCl [Ondansetron 4mg Tab] 4 mg PO Q6HP PRN PRN Reason: Nausea Discontinued acetaminophen 325 mg capsule 650 mg PO Q4H PRN PRN Reason: pain
--- NOTE | 2017-06-24 08:50 | Progress Note ---
Subjective Date: 06/24/17 Time: 08:15 Principal diagnosis: Left PVD, Ischemic Great Toe Interval history: 76-year-old white male in bed in no acute distress. No complaints of chest pain overnight. Right wrist is a little sore but otherwise okay. Patient is scheduled to go to dialysis today. Exam Vital signs and Labs for Last 24 Hours: Temp Pulse Resp BP Pulse Ox 98.7 F 91 H 18 129/64 92 L 06/24/17 07:31 06/24/17 07:31 06/24/17 07:31 06/24/17 07:31 06/24/17 07:31 Laboratory Results - last 24 hr 06/23/17 03:10: Total Counted 100, Neutrophils % (Manual) 82 H, Lymphocytes % ( Manual) 9 L, Monocytes % (Manual) 9, Platelet Estimate Slight increase, RBC Morphology Normal 06/23/17 08:41: APTT 42.3 H D 06/23/17 13:13: Activated Clotting Time 219 H* 06/23/17 17:21: POC Glucose 119 06/23/17 20:30: POC Glucose 147 06/24/17 06:15: WBC 11.9 H, RBC 3.29 L, Hgb 9.2 L, Hct 30.1 L, MCV 91.5, MCH 27.9, MCHC 30.5 L, RDW 15.6, Plt Count 425 H, MPV 8.0, Neut % (Auto) 82.5 H, Lymph % (Auto) 5.9 L, Potter % (Auto) 7.5, Eos % (Auto) 3.6, Baso % (Auto) 0.4, Neut # (Auto) 9.8 H, Lymph # (Auto) 0.7, Potter # (Auto) 0.9, Eos # (Auto) 0.4, Baso # (Auto) 0.1 06/24/17 06:15: Sodium 135 L, Potassium 5.1, Chloride 103, Carbon Dioxide 23, Anion Gap 14.1, BUN 77 H, Creatinine 4.82 H, Estimated Creat Clear 14, Estimated GFR 12 L*, Est GFR ( Amer) 14 L*, Glucose 97 I & O for Last 24 hours: Intake & Output 03/26/18 03/27/18 03/28/18 03/29/18 11:59 11:59 11:59 11:59 Intake Total 200 / 200 1080 / 1080 Balance 200 / 200 1080 / 1080 Weight 162 lb 7 oz 171 lb 15.369 oz - *Routine Respiratory Exam Present: CTA bilaterally, diminished air movement - *Routine Cardiovascular Exam Present: RRR - *Routine Extremities Exam Comments: Trace edema of the left lower extremity. The foot and leg are warm. Pulses still not appreciable. 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 Bare-metal stent used. Patient will continue aspirin and Plavix for at least one month. Current Visit: No (6) Cellulitis of left foot Status: Acute Current Visit: Yes (7) Osteomyelitis Status: Acute Current Visit: Yes (8) Anemia Status: Acute Current Visit: Yes (9) Renal insufficiency Status: Acute Current Visit: Yes (10) ESRD (end stage renal disease) on dialysis Status: Acute Current Visit: Yes Assessment and Plan for All Diagnoses:: Patient is to be discharged today to be transported for dialysis. Recommend follow-up in our office in 1 week.
== END 2017-06-24 09:15 | disposition home or self-care (01) ==
LOC: 2ND
PROVIDERS: ADMIT Emergency Medicine; ATTEND Emergency Medicine

== ENCOUNTER 2017-06-28 09:38 | Outpatient (RCR) | payer MEDICARE, SELFPAY ==
--- NOTE | 2017-06-28 10:39 | [facility].PTOPWND ---
Rehab Outpt Wound Evaluation Rehab OP Wound Evaluation Start: 06/28/17 10:30 Freq: Status: Active Protocol: Document 06/28/17 10:30 JONO (Rec: 06/28/17 10:37 PHORLAURA [id number]) Electronically Signed By Shamar Johnson, PT 06/28/17 10:30 Subjective/History History History Pt presents with c/o left great toe wound x ~3-4 wks and very tender to palpation. Pt reports having right LE AKA ~ 1 mo ago and wound of left foot began shortly thereafter. He had stents placed in the left LE on 06/23 to improve circulation. He is currently taking antibiotics nd the wound is being dressed with Santyl at the [facility]. He has hx of CAD, CHF, Anxiety, CVA Subjective Subjective Currently c/o pain in the left foot. Wound Eval Wound Left Great Toe Wound Type circulatory ulcer Is This a Chronic Wound Yes Wound Length (cm) 1.0 Wound Width (cm) 1.6 Wound Bed Appearance Eschar Necrotic Percentage of Eschar (Black) (%) 100 Surrounding Tissue Appearance Purple Drainage Description Sanguineous Drainage Amount Scant Primary Dressing Composite Wound Debridement Method Sharps Forceps Wound Debridement Amount of Tissue Minimal Removed Wound Debridement Result Stopped Due to Bleeding Necrotic Tissue Remains Dressing Change Patient Tolerance Tolerated Well Wound Problems/Impairments Impairments Problems/Impairmments Palpation Tenderness Wound Care Needs Subjective C/O Pain Impaired Self Care/Self Management Prognosis Rehab Potential Fair Clinical Impression Consistent with Diagnosis Yes Short Term Goals Number of Weeks 4 Decreased Palpation Tenderness Yes: to min Decrease Wound Area Yes: by 25% Decrease Black/Brown Eschar % Yes: by 50% Usp Goals Number of Weeks 8 Decreased Palpation Tenderness Yes: to none Decrease Wound Area Yes: by 75% Decrease Black/Brown Eschar % Yes: by 100% Outpatient Therapy Plan of Care Treatment Plan May Include Therapeutic Exercise Including Home Yes Exercise Program Ma
== END 2017-06-28 09:39 | disposition home or self-care (01) ==
LOC: PT 09:38
PROVIDERS: PCP Emergency Medicine; Visit Provider Podiatrist
DX: L97.529 Non-pressure chronic ulcer of other part of left foot with unspecified severity (principal)
CPT/HCPCS: 97163; 97597